=== PATIENT | female | born 1990 | race Caucasian/White ===

== ENCOUNTER 2023-03-17 11:31 | Outpatient (AMB) | payer OTHER, SELFPAY ==
--- NOTE | 2023-03-17 11:32 | AM.OFFWIN_ITS ---
Intake Vital Signs 03/17/23 11:35 Height 5 ft 6 in BP 125/74 Blood Pressure Location Rt brachial Position Sitting Pulse 85 Pulse Source Pulse Oximeter Temp 97.7 F Temp Source Temporal Artery Scan Pulse Oximetry (%) 98 Oxygen Delivery Method Room Air Intake Visit Reasons: Est/ anxiety past couple weeks Intake Note: Pt is here c/o having a lot of anxiety. Pt states she is depressed and is a diabetic. Pt states she has not been medicated since she was 19 years ago and is requesting medications to help her until she can see a physcatrist. Patient Tobacco Use Status: Never used Tobacco Allergies Cephalosporins Adverse Reaction (Intermediate, Verified 03/17/23 11:35) Hives Do you need a note to return to daycare/school/sports/work: No HPI HPI Comments History of Present Illness Details The patient presents to urgent care for evaluation of anxiety. She has a history of bipolar disorder and has been managing her diagnosis without any medication since she has been 19 however over the past month or so she has been feeling very anxious and feeling like she needs to get back on medication. She is denying suicidal thoughts of harm, however feels that her anxiety is getting the best of her. She has reached out to her PCP and cannot get an appointment for months she has been placed on wait list for therapist and psychiatrist. [facility] Social History Patient Tobacco Use Status: Never used Tobacco Review of Systems Const Denies no additional complaints and Denies difficulty sleeping Eyes Denies blurry vision ENT Reports no additional complaints Card Reports no additional complaints, Denies chest pain and Denies dyspnea Resp Denies cough and Denies dyspnea GI Denies abdominal pain Musc Reports as per HPI Physical Exam Vital Signs: Last Vital Signs Temp 97.7 F 03/17/23 11:35 Pulse 85 03/17/23 11:35 BP 125/74 03/17/23 11:35 Pulse Ox 98 03/17/23 11:35 Oxygen Delivery Method Room Air 03/17/23 11:35 Const General: healthy appearing and no acute distress Orientation/consciousness: patient oriented x3 Eyes Corneas: corneas normal Pupils: Equal, round and reactive pupils present Chest Chest palpation & inspection: no tenderness Resp Effort & Inspection: normal respiratory effort and able to speak in complete sentences GI Palpation (GI): nontender Neuro General: patient oriented x3 Cranial nerves: Yes Equal, round and reactive pupils present Psych Appearance: grossly normal Attitude: cooperative Assessment & Plan Assessment & Plan (1) Anxiety: Code(s): F41.9 - Anxiety disorder, unspecified Plan Acute anxiety in the setting of bipolar disorder. Will treat with p.r.n. Xanax. Patient was advised that this is just a bridge until she can get on some appropriate medications. Patient is understandable recommend calling PCP back for a stat appointment. Medications: New alprazolam (Xanax) 0.5 mg PO BID PRN 14 tabs 0RF anxiety Coding Level of Care Code Est Pt Level 3 (22116) Diagnoses Anxiety F41.9
[2023-03-17 11:35] VITALS: BP 125/74; PULSE 85; TEMP 36.5; O2SAT 98
== END 2023-03-17 12:27 | disposition home or self-care (01) ==
PROVIDERS: Visit Provider Emergency Medicine
DX: F41.9 Anxiety disorder, unspecified (principal)
CPT/HCPCS: 99213

== ENCOUNTER 2024-05-29 12:43 | Outpatient (REF) | payer OTHER, SELFPAY | END 2024-05-29 12:44 | disposition home or self-care (01) | LOC: HO.HOSX 12:43 | DX: S60.212A Contusion of left wrist, initial encounter (principal); R20.2 Paresthesia of skin; R20.0 Anesthesia of skin; S52.202A Unspecified fracture of shaft of left ulna, initial encounter for closed fracture; S52.92XA Unspecified fracture of left forearm, initial encounter for closed fracture | CPT/HCPCS: 73090; 99202 ==

== ENCOUNTER 2024-05-29 14:10 | Outpatient (AMB) | payer OTHER, SELFPAY ==
--- NOTE | 2024-05-29 14:25 | MHC.OFFVIS ---
Intake Visit Reasons: FC-shaft of LF radius, initial encounter closed Intake Note: Lou is a 33 year old right hand dominant female who presents to the office today for a FC shaft of LF radius. Pt states this happened Tuesday05/22/24 when she was walking down the stairs and slipped and fell. Pt states she waited 2 days after that to go to urgent care. Pt states her pain has gotten better within the past week. Pt states she did have some swelling but has gone down since. Pt states she was put in a splint and has been using it as much as possible. Pt states she took off the splint today. Pt states she does have occasional numbness and tingling in her wrist which travels to her fingers. Allergies Cephalosporins Adverse Reaction (Intermediate, Verified 05/29/24 14:29) Hives HPI HPI FC-shaft of LF radius, initial encounter closed: Details: Patient is a 33 year presents for follow-up evaluation thumb urgent care, where she was told she had a left distal radius fracture, date of injury 05/22/2024. The patient reports that she was placed into a splint at the urgent care, and states that she was holding compliant with this until yesterday, when she removed of the splint. Today, the patient reports that her symptoms have improved significantly and almost completely resolved, and the patient expresses that she is unsure as to where she should go from here. The patient denies some intermittent numbness and tingling in the left hand. Patient reports that her wrist and forearm were significantly swollen at time of injury, but this has completely resolved. No other acute complaints or concerns at this time. [facility] Social History Patient Tobacco Use Status: Never used Tobacco Physical Exam Extrem Other: Patient is alert, oriented, and in no acute distress. Neuro: Normal sensation of the tips of all digits of the left hand at this time Vascular: Cap refill brisk Pain: Minimal tenderness to palpation noted of the patient's left radial styloid No tenderness to palpation of the DRUJ, ulnar styloid, distal radial shaft, or elsewhere on the left hand or wrist No snuffbox tenderness ROM: Patient is able to make a closed fist and extend all digits of the left hand fully and without difficulty Skin: No lacerations or abrasions. General: No ecchymosis, erythema, or evidence of infection. Psych: Appears grossly normal Affect normal Attitude cooperative Results Reviewed Results Reviewed: X-rays obtained in the office today and independently reviewed by me, Go Avitia PA-C, demonstrate no fracture or acute bony abnormality Assessment & Plan Assessment & Plan (1) Contusion of left wrist: Code(s): S60.212A - Contusion of left wrist, initial encounter Category: Medical (2) Numbness and tingling of left hand: Code(s): R20.0 - Anesthesia of skin; R20.2 - Paresthesia of skin Category: Medical Plan 1. Contusion of left wrist Patient was informed that her x-rays today demonstrate no fracture or acute bony abnormality Patient is also educated that her lack of symptoms at this time is also suggestive that there was no fracture Patient expresses understanding of this Patient is given a Velcro wrist splint to be worn with daytime activities, and if she has any increasing pain or symptoms whatsoever she is to call for re-evaluation Patient expresses understanding of this and is amenable to this plan 2. Numbness and tingling of left hand Symptoms intermittent, daily since injury, worse at night Patient is referred for EMG and nerve conduction study to assess the health of the nerves of the left upper extremity Patient will follow-up after EMG and nerve conduction study for results review and discussion of further treatment options if indicated Patient is amenable to this plan Patient will follow-up after EMG and nerve conduction study, sooner with any acute concerns Orders: Orders XR forearm LT 2V 05/29/24 S52.90XA - Unspecified fracture of unspecified forearm, initial encounter for closed fracture, S52.209A - Unspecified fracture of shaft of unspecified ulna, initial encounter for closed fracture NE electromyogram (EMG) 05/29/24 R20.0 - Anesthesia of skin, R20.2 - Paresthesia of skin NE nerve conduction velocity 05/29/24 R20.0 - Anesthesia of skin, R20.2 - Paresthesia of skin Coding Level of Care Code New Pt Level 3 (77617) Diagnoses Contusion of left wrist S60.A Numbness and tingling of left hand R20.0; R20.2
== END 2024-05-29 14:49 | disposition home or self-care (01) ==
DX: S60.212A Contusion of left wrist, initial encounter (principal); R20.0 Anesthesia of skin; R20.2 Paresthesia of skin
CPT/HCPCS: 99203